=== PATIENT | male | born 1970 | race Caucasian/White ===

== ENCOUNTER 2018-12-22 18:22 | Emergency (ER) | payer OTHER ==
[2018-12-22] MEDS ORDERED: EPINEPHrine 1 MG/ML SDV SUBCUT ONE (18:31)
[2018-12-22] MEDS ORDERED: methylPREDNISolone Sodium Succinate 125 MG/2 ML SDV IVPUSH ONE (18:32)
[2018-12-22] MEDS ORDERED: diphenhydrAMINE 50 MG/ML SDV IVPUSH ONE (18:32)
--- NOTE | 2018-12-22 18:34 | EDM.PDOC ---
ED HPI GENERAL MEDICAL PROBLEM - General Chief Complaint: Bite:Animal, Insect Stated Complaint: STUNG BY BEE Time Seen by Provider: 12/22/18 18:33 Source of Information: Reports: Patient History Limitations: Reports: No Limitations - History of Present Illness INITIAL COMMENTS - FREE TEXT/NARRATIVE: pt arrived with a history of a bee sting to his rt calf. He was stung about 45 minutes ago. He did get redness and he did note generalized hives . He did not get sob. Onset: Today, Sudden Duration: Hour(s):, Other (pt forgot his epipen at home and he is here for the weekend. ) Location: Reports: Generalized Associated Symptoms: Reports: No Other Symptoms Generalized Pain Score (Numeric/FACES): 2 - Related Data Allergies Allergy/AdvReac Type Severity Reaction Status Date / Time Penicillins Allergy Rash Verified 12/22/18 18:28 Home Meds: Home Meds NK [No Known Home Meds] 12/22/18 [History] ED ROS GENERAL - Review of Systems Review Of Systems: See Below Constitutional: Reports: No Symptoms HEENT: Reports: No Symptoms Respiratory: Reports: No Symptoms Cardiovascular: Reports: Palpitations, Other (pt has very elevated bp. ) Endocrine: Reports: No Symptoms GI/Abdominal: Reports: No Symptoms : Reports: No Symptoms Musculoskeletal: Reports: No Symptoms Skin: Reports: No Symptoms Neurological: Reports: No Symptoms Psychiatric: Reports: No Symptoms ED EXAM, ANIMAL BITE - Physical Exam Exam: See Below Text/Narrative:: pt arrived with a hisroty of being stung by a bee about 45 minutes ago. He has developed redness locally and he has generalized hives. Exam Limited By: No Limitations General Appearance: Alert, Anxious, Mild Distress, Other (pt is feeling quite anxious. ) Ears: Normal TMs Nose: Normal Inspection Throat/Mouth: Normal Inspection Head: Atraumatic Neck: Normal Inspection Respiratory/Chest: No Respiratory Distress Cardiovascular: Regular Rate, Rhythm GI/Abdominal: Soft, Non-Tender (Male) Exam: Deferred Rectal (Males) Exam: Deferred Back Exam: Normal Inspection Extremities: Normal Inspection, Other (pt does have hive on his arms and legs, noted also on his back. ) Neurological: Alert, Oriented Psychiatric: Anxious Course - Vital Signs Last Recorded V/S: Last Vital Signs Temp 36.6 C 12/22/18 18:30 Pulse 100 08/09/19 18:55 Resp 18 12/22/18 18:55 BP 152/94 H 12/22/18 18:55 Pulse Ox 97 12/22/18 18:55 - Orders/Labs/Meds Orders: Active Orders 24 hr Category Date Time Status Sodium Chloride 0.9% [Normal Saline] 1,000 ml Med 12/22/18 18:45 Active IV ASDIRECTED Medication Orders Sodium Chloride (Normal Saline) 1,000 mls @ 999 mls/hr IV ASDIRECTED JOSE Last Admin: 12/22/18 18:55 Dose: 999 mls/hr Meds: Medications Generic Name Dose Route Start Last Admin Trade Name Freq PRN Reason Stop Dose Admin Sodium Chloride 1,000 mls @ 999 mls/hr 12/22/18 18:45 12/22/18 18:55 Normal Saline IV 999 mls/hr ASDIRECTED JOSE Administration Discontinued Medications Generic Name Dose Route Start Last Admin Trade Name Freq PRN Reason Stop Dose Admin Diphenhydramine HCl 25 mg 12/22/18 18:32 12/22/18 18:59 Benadryl IVPUSH 12/22/18 18:33 25 mg ONETIME ONE Administration Epinephrine HCl 0.3 mg 12/22/18 18:31 12/22/18 18:38 Adrenalin SUBCUT 12/22/18 18:32 0.3 mg ONETIME ONE Administration Lorazepam 0.5 mg 12/22/18 18:40 Ativan IVPUSH 12/22/18 18:41 ONETIME ONE Methylprednisolone Sodium Succinate 125 mg 12/22/18 18:32 12/22/18 18:52 Solu-Medrol IVPUSH 12/22/18 18:33 125 mg ONETIME ONE Administration - Re-Assessments/Exams Free Text/Narrative Re-Assessment/Exam: 12/22/18 19:26 pt was given epi .3 and solumedrol plus another 25 mg of benadryl He is doing well. His vital signs look good the hives are fading. Departure - Departure Time of Disposition: 19:28 Disposition: Home, Self-Care 01 Condition: Fair Clinical Impression: Bee sting reaction - Discharge Information Forms: ED Department Discharge Care Plan Goals: cool pack the sting area, benadryl 50 mg q6h for the next 12 hours., epipen. Be sure to keep benadryl on hand. - My Orders Last 24 Hours: My Active Orders 12/22/18 18:45 Sodium Chloride 0.9% [Normal Saline] 1,000 ml IV ASDIRECTED - Assessment/Plan Last 24 Hours: My Active Orders 12/22/18 18:45 Sodium Chloride 0.9% [Normal Saline] 1,000 ml IV ASDIRECTED
[2018-12-22] MEDS ORDERED: LORazepam 2 MG/ML SDV IVPUSH ONE (18:40)
[2018-12-22] MEDS ORDERED: Sodium Chloride 0.9% 1,000 ML IV SCH (18:45)
== END 2018-12-22 20:10 | disposition home or self-care (01) ==
LOC: JP.ED 18:22
DX: T63.441A Toxic effect of venom of bees, accidental (unintentional), initial encounter (principal)
CPT/HCPCS: 96361; 96372; 96374; 96375; 99282; J0171; J1200; J2930; J7030